=== PATIENT | female | born 1980 | race Caucasian/White ===

== ENCOUNTER 2016-04-04 08:46 | Emergency (ER) | payer BC ==
[2016-04-04 09:01] VITALS: RESP 16; TEMP 98.3
--- NOTE | 2016-04-04 09:33 | DI ---
XR KNEE 3 VW,04/04/2016 9:05 AM: Clinical History: Trauma and pain. Previous Exam: None at this facility. Findings: 3 views of the right knee are obtained, and demonstrate anatomic alignment without fractures. Surroun ding soft tissues are unremarkable. Impression: Normal right knee.
--- NOTE | 2016-04-04 09:55 | PDOC ---
Lower Extremity Injury HPI - General Chief Complaint: Lower Extremity Problem/Injury Stated Complaint: R KNEE INJURY/PAIN Date Seen by Provider: 04/04/16 Time Seen by Provider: 08:50 Source: POSITIVE: Patient Exam Limitations: POSITIVE: No limitations Nurse's Notes Reviewed & Considered: Yes - History of Present Illness Initial Comments: The patient is a 35-year-old female. She states that 2-1/2 days [employer] she was walking and "I dislocated my right knee cap". She states that her patella was dislocated medially and spontaneously reduced itself in a few seconds. Since that time, however, she has continued to have discomfort to the anterior and medial aspect of the right knee. She states she has a long-standing history of patellar dislocations going back to her childhood. She states that 2 weeks ago she spontaneously dislocated the left patella. She states that what is different about the episode she had 2-1/2 days ago with her right knee is that she has had some persistent discomfort over the anterior and medial aspect of the knee since. She has been ambulating. Since childhood, she has had several dislocations involving both the right and left patellas. She states she has been tested for arthritis in the past. She has no known medical problems. She is on control pills. She's had a tonsillectomy and an appendectomy. Have you received a tetanus shot in the past 10 years?: Yes Body Location Affected: REPORTS: Lower Extremity (R) Timing: REPORTS: Abrupt Duration: >24 hours (Spontaneous dislocation right patella 2-1/2 days [employer]) Severity: Moderate Quality: REPORTS: "Pain" (Anteromedial aspect of right knee) Location at Time of Onset: REPORTS: Home Context of Injury: REPORTS: Other (Patient was walking at the time) Location of Injury: REPORTS: Knee (R) Modifying Factors: improves with: Movement Associated Symptoms: DENIES: Unable to Bear Weight, Snapping, Popping Sensation , Became Dizzy, Fainted, Seizure, Other Any Prior Injuries Related to Current Complaint?: Yes (history of previous episodes for several years) - Patient Home Medications Home Medications: Home Medications Levonorgestrel-Ethin Estradiol [Aviane-28 Tablet] 1 tab PO DAILY #3 packet 12/09 Levonorgestrel-Ethin Estradiol [Aviane-28 Tablet] 1 tab PO DAILY #4 packet 12/01 - Patient Allergies Allergies/Adverse Reactions: Allergies Allergy/AdvReac Type Severity Reaction Status Date / Time No Known Allergies Allergy Unverified 12/02/15 10:08 Past Medical History - heen HEENT History: Denies History Cardiovascular History: Denies History Respiratory History: Denies History Gastrointestinal History: Denies History Genitourinary History: Denies History Endocrine History: Denies History Additional Endocrine History: BEING WORKED UP FOR THYROID ISSUES FOR THE LAST MONTH Musculoskeletal History: Denies History Prosthesis or Implant: No Neurological History: Denies History Blood Disorders: Denies History Psychiatric History: Denies History History of Sexually Transmitted Diseases: No LMP: 03/28/16 Obstetrical History: Denies History Cancer History: Denies History In Past Year Been Physically Harmed or Verbally Threatened: No History of MDRO: No History of Other Communicable Diseases: No Tobacco Use: Never Smoker Alcohol Use: None Substance Use Type: None Previous Surgical History: Yes Type / Date of Surgery: APPY/ TONSILLECTOMY Anesthesia Reactions: No Malignant Hyperthermia: No Significant Family History: Diabetes Additional Family History: HTN, DM and breast CA Past Medical History Reviewed: Reviewed - No Changes ROS - Limitations ROS Limitations: No Limitations Constitution: REPORTS: Denies Symptoms Cardiovascular: REPORTS: Denies Cardiac Symptoms Respiratory: REPORTS: Denies Resp Symptoms Neurological: REPORTS: Denies Neuro Symptoms Gastrointestinal: REPORTS: Denies GI Symptoms Endocrine: REPORTS: Denies Symptoms Musculoskeletal: REPORTS: Joint Pain (Right knee) Genitourinary: REPORTS: Denies Symptoms Eyes: REPORTS: Denies Symptoms ENT: REPORTS: Denies Symptoms Skin: REPORTS: Denies Skin Symptoms Lympathic: REPORTS: Denies Lympathic Symptoms Immunologic: POSITIVE: Denies Symptoms Psychiatric: POSITIVE: Denies Psych Symptoms Lower Ext Complaint Exam - General Appearance General Appearance: POSITIVE: Alert, Cooperative, No Acute Distress, No Evidence of Trauma Reflexes: Patellar (R): 2+, Patellar (L): 2+ - Extremities Lower Extremity: POSITIVE: Normal ROM (But full extension of right knee somewhat painful), Normal Color, Normal Temperature, Skin Intact, No Joint Swelling, No Evidence of Ischemia, Stable, Soft Tissue Tenderness, Bony Tenderness, See Diagram. NEGATIVE: Non-Tender (Some tenderness on direct palpation about the anterior and medial aspect of the patellofemoral joint), Swelling, Ecchymosis, Erythema, Deformity, Pulse Deficit, Limited ROM, Laxity of Ligaments, Joint Effusion, Hip Pain on Leg Movement Lower Extremity Ligament: NEGATIVE: Pain on Anterior Drawer, Pain on Posterior Drawer, Laxity on Anterior Drawer, Laxity w/Posterior Drawer, Pain on Medial Stress, Pain on Lateral Stress, Laxity on Medial Stress, Laxity on Lateral Stress, Other Gait: POSITIVE: Antalgic Gait (Mildly antalgic) Neurovascular/Tendon: POSITIVE: Sensation Normal, Motor Normal, No Vascular Compromise Skin: POSITIVE: Warm, Dry - Respiratory / CVS Respiratory / CVS: POSITIVE: Chest Non Tender, No Ecchymosis, Breath Sounds Normal, No Respiratory Distress, Heart Sounds Normal, Regular Rate/Rhythm Peripheral Pulses: Radial (R): 2+, Radial (L): 2+, Dorsalis-pedis (R): 2+, Dorsalis-pedis (L): 2+ Images - Lower Extremities Lower Extremities: 1 - Some discomfort on palpation yolie- medial aspect of left knee Procedures - Splinting Time Splint Applied: 09:20 Location: patellar stabilizing brace right knee Pre-Proc Neuro Vasc Exam: Normal Splint Type: Other (Patellar stabilizing brace, right knee) Splint Form: Other (Patellar stabilizing brace, right knee) Applied By:: Nurse Lower Ext Complaint Progress - Results Reviewed by me Xrays/CTs/US Reviewed by me: Yes Discussed with Radiologist: No Radiology Findings: X-ray right knee normal - Patient's Progress Pain Medication Addressed: POSITIVE: Yes (Recommended Advil or Tylenol) School/Work Release Addressed: POSITIVE: Yes (May return to work; recommended reduced stairclimbing) Re-Examine Time:: 09:30 Status: POSITIVE: Unchanged - Consult Counseled: POSITIVE: Patient, RE: Radiology Results, RE: DX, RE: Need for F/U Patient Care Time - Estimated PCT Patient Care Time (In Minutes): 20 Vital Signs - Recent Vital Signs Vital Signs: Vital Signs (Last 8 hours) Temp Pulse Resp BP Pulse Ox 04/04/16 08:56 98.3 F 81 16 96/68 97 - VS Reviewed Vital Signs Reviewed: Yes Discharge Clinical Impression: Patellar instability of both knees Discharge Disposition: Discharged to Home Condition: Stable Patient Instructions Given at Discharge: Patellar Dislocation (ED) Additional Instructions: You have chronic instability of your kneecaps, causing you to have recurring dislocations of your knee caps. Today's x-ray of your right knee was normal. Please wear the patellar stabilizing knee brace to your right knee. Make an appointment in orthopedics and follow-up there; they may recommend physical therapy and may explore surgical options. Tylenol or advil for discomfort. You may return to work, but reduce stair climbing. Return here any time if condition worsens. Follow Up With: LATOSHA HILLMAN [Primary Care Provider] - (Instructions as above. Follow-up in orthopedics and with your primary care provider.)
== END 2016-04-04 09:46 | disposition home or self-care (01) ==
LOC: ER 08:46
DX: M22.01 Recurrent dislocation of patella, right knee (principal); M25.561 Pain in right knee
CPT/HCPCS: 73562; 99282; 99283

== ENCOUNTER → 2016-04-19 | Outpatient (CLI) | payer BC ==
--- NOTE | 2016-04-20 08:57 | DI ---
LEFT KNEE, 04/19/2016 11:22 AM: Clinical History: Left knee pain. Previous Exam: None at this facility. 4 views are submitted. The AP and tunnel projections are weight bearing views. There is no acute soft tissue, osseous, or joint abnormality. Reading: No degenerative arthritic changes are noted in any of the knee compartments.
== END ==
LOC: RAD 11:30
PROVIDERS: ATTEND Physician Assistant
DX: M25.562 Pain in left knee (principal)
CPT/HCPCS: 73564

== ENCOUNTER → 2016-04-25 | Outpatient (CLI) | payer BC ==
--- NOTE | 2016-04-25 14:37 | DI ---
MRI RIGHT KNEE SCAN, 04/25/2016 11:11 AM: Clinical History: Right knee injury. Previous Exam: None at this facility. Technique: Axial, coronal, and sagittal PD and fat saturated PD; axial T1 weighted. There is no soft tissue edema. There is a small joint effusion. There is a focus of hyperintensity in the posterolateral margin of the lateral femoral condyle. Located in the superior half of the patell a at the junction between the medial and lateral facets is a second but smaller focus of hyperintensi ty. Both of these foci of hyperintensity are consistent with bone contusions. There is mild lateral s ubluxation of the patella and there is intermediate signal intensity in the medial retinaculum and th e medial patellofemoral ligament at the junction with the medial collateral ligament. There is also l axity of these ligaments and the findings are consistent with a subacute or chronic partial tear with scarring. 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 The medial and lateral collateral ligaments and the anterior and posterior cruciate ligaments are no rmal. The medial and lateral menisci, the quadriceps and patellar and popliteus tendons and the tendo ns of the medial and lateral heads of the gastrocnemius muscle Readin. There is a small joint effusion. Focal areas of bone edema are present in the posterolateral angélica in of the lateral femoral condyle and in the midline and superior half of the patella. There is laxit y of the medial patellofemoral ligament and the medial retinaculum with evidence of chronic scarring at the attachment of the structures to the anterior margin of the MCL. There is a grade 2 chondromala harpreet in the medial facet of the patella. 2. The MCL, LCL, ACL, PCL, medial and lateral menisci, the quadriceps and popliteus and patellar ten dons as well as the tendons of the medial and lateral heads of the gastrocnemius muscle are normal. T he articular surfaces of the medial and lateral compartments are intact.
== END ==
LOC: MRI 11:04
PROVIDERS: ATTEND Physician Assistant
DX: M25.561 Pain in right knee (principal); M25.461 Effusion, right knee; M22.41 Chondromalacia patellae, right knee
CPT/HCPCS: 73721

== ENCOUNTER → 2016-04-26 | Outpatient (CLI) | payer BC ==
--- NOTE | 2016-04-27 14:29 | DI ---
MRI LEFT KNEE SCAN, 04/26/2016 11:04 AM: Clinical History: Patellar subluxation. Previous Exam: None at this facility. Technique: Axial, coronal, and sagittal PD and fat saturated PD; axial T1 weighted. There is no soft tissue edema. There is no significant joint effusion. No abnormal bone signal patter n is present. The medial and lateral collateral ligaments and the anterior and posterior cruciate lig aments as well as the posterior meniscofemoral ligament of [place] are all normal. The lateral beltrán lofemoral ligament and the lateral retinaculum are also normal. There is intermediate signal intensit y with laxity in the medial patellofemoral ligament and the medial retinaculum consistent with chroni c partial tears of these structures. There is lateral subluxation of the patella. There is fissuring of the medial patellar facet and is thin. Fissuring is also present in the lateral patellar facet mayco r the midline. 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 The medial and lateral men isci, the quadriceps and patellar and popliteus tendons and the tendons of the medial and lateral hea ds of the gastrocnemius muscle are also normal. Hoffa's fat pad and the articular surfaces of the med ial and lateral compartments are intact. Readin. There is chronic scarring with laxity of the medial patellofemoral ligament and the medial retina culum with associated lateral subluxation of the patella. Grade 2 chondromalacia is present in the me dial and lateral facets of the patella. The medial facet cartilage is thinned. 2. The MCL, LCL, ACL, PCL, medial and lateral menisci, the quadriceps and patellar and popliteus ten dons, and the tendons of the medial and lateral heads of the gastrocnemius muscle are normal. The art icular surfaces of the medial and lateral compartments are also normal.
== END ==
LOC: MRI 11:03
PROVIDERS: ATTEND Physician Assistant
DX: M25.562 Pain in left knee (principal); M22.42 Chondromalacia patellae, left knee
CPT/HCPCS: 73721

== ENCOUNTER → 2016-09-13 | Outpatient (CLI) | payer BC ==
[2016-09-13 09:44] LABS: BLOOD UREA NITROGEN 17 mg/dL (7-22); BUN/CREATININE RATIO 24.28 (6-20); CALCIUM 9.1 mg/dL (8.7-10.7); EST GLOMERULAR FILTRATION > 60 (>60 ml/min/1.73m(2))
[2016-09-13 09:48] LABS: BASOPHILS # (AUTO) 0.07 10*3/UL; BASOPHILS % (AUTO) 0.9 % (0-1); EOSINOPHILS # (AUTO) 0.19 10*3/UL; EOSINOPHILS % (AUTO) 2.3 % (0-8); HEMATOCRIT 41.3 % (37.0-47.0); LYMPHOCYTES # (AUTO) 2.39 10*3/uL; MEAN CORPUSCULAR HEMOGLOBIN 30.5 PG (27-31); MEAN CORPUSCULAR HGB CONC 33.9 g/dL (33-37); MEAN PLATELET VOLUME 9.8 FL (7.4-12.2); MONOCYTES # (AUTO) 0.59 10*3/UL (0.3-0.8); MONOCYTES % (AUTO) 7.3 % (5-15); NEUTROPHILS # (AUTO) 4.85 10*3/UL; NEUTROPHILS % (AUTO) 59.8 % (50-80); PLATELET MORPHOLOGY COMMENT NORMAL MORPHOLOGY (NORM); RBC MORPHOLOGY COMMENT NORMAL MORPHOLOGY (NORM); RED BLOOD COUNT 4.59 10^6/uL (4.20-5.40); WBC MORPHOLOGY COMMENT NORMAL MORPHOLOGY (NORM)
== END ==
LOC: LAB 08:29
PROVIDERS: ATTEND Physician Assistant Medical
DX: R53.83 Other fatigue (principal); M79.1 Myalgia
CPT/HCPCS: 36415; 80053; 82306; 84443; 85025